=== PATIENT | male | born 1955 ===

== ENCOUNTER → 2018-03-20 06:22 | Outpatient (CLI) | payer OTHER ==
[~2018-03-20 06:22] MED LIST: AMARIL PO; ENALAPRIL MALE2.5 MG PO; HYZAAR 100-251 EACH PO; METFORMIN HCL1000 M1 PO; NORVASC2.5 M1 PO
== END | disposition home or self-care (01) ==
LOC: EKG 06:22
DX: I10 Essential (primary) hypertension (principal)

== ENCOUNTER 2018-03-21 11:15 | Inpatient (IN) | payer OTHER ==
[~2018-03-21] VITALS: Ht 180.3 cm; Wt 95.3 kg
== END 2018-03-30 16:40 | DRG 470 ==
LOC: SURH 03-28 10:00 → MEDI 03-28 10:45 → O/R 03-28 10:45 → SURH 03-28 11:15 → MEDI 03-28 23:55
PROVIDERS: Orthopaedic Surgery
PROC: 0SRB02Z Replacement of Left Hip Joint with Metal on Polyethylene Synthetic Substitute, Open Approach (ICD-10-PCS; principal; 2018-03-28 10:00)
DX: M16.12 Unilateral primary osteoarthritis, left hip (principal); D62 Acute posthemorrhagic anemia; E11.9 Type 2 diabetes mellitus without complications; I10 Essential (primary) hypertension